=== PATIENT | female | born 1950 | race Caucasian/White ===

== ENCOUNTER 2016-12-15 12:43 | Outpatient (CLI) | payer MEDICARE ==
[2016-12-15 13:04] LABS: Basophils % (Auto) 1.1 % (0.0-1.8); Hematocrit 32.6 % (30.3-42.9); Hemoglobin 10.4 gm/dl (10.1-14.3); Mean Corpuscular HGB Conc 32 % (30-34); Mean Corpuscular Hemoglobin 29 pg (28-32); Mean Corpuscular Volume 90 fl (79-97); Platelet Count 247 K/mm3 (140-440); Red Blood Count 3.65 M/mm3 (3.65-5.03); Red Cell Distribution Width 14.9 % (13.2-15.2); White Blood Count 9.1 K/mm3 (4.5-11.0)
[2016-12-15 13:30] LABS: Albumin 3.9 g/dL (3.9-5); BUN/Creatinine Ratio 9.87; Bilirubin,Total 0.5 mg/dL (0.1-1.2); Calcium 9.2 mg/dL (8.4-10.2); Chloride 107.4 mmol/L (98-107); Phosphorous 4.8 mg/dL (2.5-4.5); Potassium 5.7 mmol/L (3.6-5.0); Total Protein 7.9 g/dL (6.3-8.2)
== END 2016-12-15 12:44 | disposition home or self-care (01) ==
LOC: LAB 12:43
PROVIDERS: ATTEND Internal Medicine Nephrology
DX: I13.2 Hypertensive heart and chronic kidney disease with heart failure and with stage 5 chronic kidney disease, or end stage renal disease (principal); N18.6 End stage renal disease; I50.33 Acute on chronic diastolic (congestive) heart failure; J44.9 Chronic obstructive pulmonary disease, unspecified; J45.909 Unspecified asthma, uncomplicated; Z87.891 Personal history of nicotine dependence; Z79.899 Other long term (current) drug therapy
CPT/HCPCS: 36415; 80053; 83970; 84100; 85025

== ENCOUNTER 2016-12-17 11:12 | Emergency (ER) | payer MEDICARE ==
[2016-12-17 12:19] LABS: Anion Gap 20 mmol/L; BUN/Creatinine Ratio 8.53; Blood Urea Nitrogen 64 mg/dL (7-17); Calcium 8.9 mg/dL (8.4-10.2); Carbon Dioxide 19 mmol/L (22-30); Chloride 104.9 mmol/L (98-107); Glucose 108 mg/dL (65-100); Sodium 139 mmol/L (137-145)
[2016-12-17 12:27] LABS: Eosinophils % (Auto) 3.6 % (0.0-4.3); Hematocrit 31.6 % (30.3-42.9); Hemoglobin 10.1 gm/dl (10.1-14.3); Mean Corpuscular HGB Conc 32 % (30-34); Mean Corpuscular Hemoglobin 29 pg (28-32); Mean Corpuscular Volume 90 fl (79-97); Platelet Count 235 K/mm3 (140-440); Red Blood Count 3.52 M/mm3 (3.65-5.03); Red Cell Distribution Width 14.4 % (13.2-15.2); White Blood Count 7.4 K/mm3 (4.5-11.0)
--- NOTE | 2016-12-17 12:52 | XRay Report ---
CHEST XRAY, 2 VIEWS: History: Shortness of breath. Findings: There is mild diffuse interstitial coarsening. The lungs are hyperexpanded but clear. No infiltrate, pleural fluid or pneumothorax is detected. The cardiac silhouette and pulmonary vasculature are within normal limits for technique. The bony thorax is unremarkable. Right IJ venous catheter terminates at the cavoatrial junction. IMPRESSION: Changes consistent with COPD. No acute cardiopulmonary process.
--- NOTE | 2016-12-17 17:06 | Emergency Department Report ---
ED Shortness of Breath HPI - General Chief Complaint: Dyspnea/Respdistress Stated Complaint: DIALYSIS Time Seen by Provider: 12/17/16 14:47 Source: patient, family Mode of arrival: Ambulatory Limitations: No Limitations - History of Present Illness Initial Comments: 66 year old female past medical history end-stage renal disease on dialysis, hypertension, CHF, COPD, diabetes, and brain aneurysm presents to the hospital complaining of needing dialysis. Patient has not had dialysis for 15 days. She complains of shortness of breath with exertion but she also has COPD and had intermittent wheezing. She denies chest pain, calf tenderness, or leg asymmetry. Patient has not gone to dialysis for 15 days because she does not like the dialysis center and thinks they are not caring for her in the proper way. She continues to make urine and has only been on dialysis since this June. Just the right chest wall vascular access without any AV fistula or graft. Patient is trying to get transferred to a new dialysis center. Brewing Director: Dr. Nguyen - Related Data Home Medications Medication Instructions Recorded Confirmed Last Taken Doxazosin [Cardura] 1 mg PO BID 12/17/16 12/17/16 12/16/16 Famotidine [Pepcid] 20 mg PO QDAY 12/17/16 12/17/16 12/16/16 Fenofibrate [Lofibra] 160 mg PO QDAC 12/17/16 12/17/16 12/16/16 Ferrous Sulfate [Feosol 325 MG tab] 325 mg PO TID 12/17/16 12/17/16 12/16/16 Folic Acid [Folvite] 1 mg PO QDAY 12/17/16 12/17/16 12/16/16 Furosemide [Lasix TAB] 40 mg PO QDAY 12/17/16 12/17/16 12/16/16 HYDROcodone/APAP 7.5-325 [[place] 1 tab PO TID 12/17/16 12/17/16 12/16/16 7.5-325 mg TAB] Insulin Glargine [Lantus VIAL] 20 units SC BID 12/17/16 12/17/16 Unknown Losartan [Cozaar] 25 mg PO QDAY 12/17/16 12/17/16 12/16/16 PARoxetine [Paxil] 20 mg PO QDAY 12/17/16 12/17/16 12/16/16 Spironolactone [Aldactone] 25 mg PO QDAY 12/17/16 12/17/16 12/16/16 Triamcinolone 0.1% [Kenalog 0.1% 1 applicatio TRANSDERMA BID 12/17/16 12/17/16 12/16/16 CREAM] hydrALAZINE [Apresoline TAB] 25 mg PO TID 12/17/16 12/17/16 12/16/16 levETIRAcetam [Keppra TAB] 500 mg PO BID 12/17/16 12/17/16 12/16/16 Previous Rx's Medication Instructions Recorded Last Taken Type Amiodarone HCl [Pacerone 400 MG 200 mg PO QDAY #30 tablet 03/11/15 12/16/16 Rx TAB] amLODIPine [Norvasc] 5 mg PO DAILY #30 tablet 03/11/15 12/16/16 Rx Allergies Allergy/AdvReac Type Severity Reaction Status Date / Time Penicillins Allergy Hives Verified 05/04/14 13:36 lactose AdvReac Diarrhea Verified 05/04/14 13:36 ED Review of Systems ROS: Stated complaint: DIALYSIS Other details as noted in HPI Comment: All other systems reviewed and negative Other: Constitutional: No fevers chills Eyes: No eye pain visual changes ENT: No ear pain or throat pain Neck: Denies pain Respiratory: Denies cough wheezing Cardiovascular: Denies chest pain, palpitations, syncope GI: Denies abdominal pain, nausea, vomiting, diarrhea : Denies dysuria Musculoskeletal: Denies back pain Skin: Denies rash, lesions, erythema Neurologic: Denies headache, numbness, weakness Psychiatric: Denies suicidal ideation, hallucinations ED Past Medical Hx - Past Medical History Previous Medical History?: Yes Hx Hypertension: Yes Hx Congestive Heart Failure: Yes Hx Diabetes: Yes Hx Arthritis: Yes Hx Asthma: Yes Hx COPD: Yes Additional medical history: brain aneurysm x2, DIALYSIS T,TH,SAT - Surgical History Past Surgical History?: Yes Hx Pacemaker: No Hx Internal Defibrillator: No Additional Surgical History: aneurysm removal x2, trach placement - Social History Smoking Status: Never Smoker Substance Use Type: None - Medications Home Medications: Home Medications Medication Instructions Recorded Confirmed Last Taken Type Amiodarone HCl [Pacerone 400 MG 200 mg PO QDAY #30 tablet 12/12/17/16 Rx TAB] amLODIPine [Norvasc] 5 mg PO DAILY #30 tablet 03/11/15 12/17/16 12/16/16 Rx Doxazosin [Cardura] 1 mg PO BID 12/17/16 12/17/16 12/16/16 History Famotidine [Pepcid] 20 mg PO QDAY 12/17/16 12/17/16 12/16/16 History Fenofibrate [Lofibra] 160 mg PO QDAC 12/17/16 12/17/16 12/16/16 History Ferrous Sulfate [Feosol 325 MG tab] 325 mg PO TID 12/17/16 12/17/16 12/16/16 History Folic Acid [Folvite] 1 mg PO QDAY 12/17/16 12/17/16 12/16/16 History Furosemide [Lasix TAB] 40 mg PO QDAY 12/17/16 12/17/16 12/16/16 History HYDROcodone/APAP 7.5-325 [[place] 1 tab PO TID 12/17/16 12/17/16 12/16/16 History 7.5-325 mg TAB] Insulin Glargine [Lantus VIAL] 20 units SC BID 12/17/16 12/17/16 Unknown History Losartan [Cozaar] 25 mg PO QDAY 12/17/16 12/17/16 12/16/16 History PARoxetine [Paxil] 20 mg PO QDAY 12/17/16 12/17/16 12/16/16 History Spironolactone [Aldactone] 25 mg PO QDAY 12/17/16 12/17/16 12/16/16 History Triamcinolone 0.1% [Kenalog 0.1% 1 applicatio TRANSDERMA BID 12/17/16 12/17/16 12/16/16 History CREAM] hydrALAZINE [Apresoline TAB] 25 mg PO TID 12/17/16 12/17/16 12/16/16 History levETIRAcetam [Keppra TAB] 500 mg PO BID 12/17/16 12/17/16 12/16/16 History ED Physical Exam - General Limitations: No Limitations - Other Other exam information: General: No limitations, patient is alert in no acute distress Head exam: Atraumatic, normocephalic Eyes exam: Normal appearance ENT: Moist mucous membrane, normal oropharynx Neck exam: Normal inspection, full range of motion, no meningismus nontender Respiratory exam: Clear to auscultation bilateral, no wheezes, rales, crackles Cardiovascular: Normal rate and rhythm, normal heart sounds Abdomen: Soft, nondistended, and nontender, with normal bowel sounds, no rebound, or guarding Extremity: Full range of motion normal inspection no deformity, tenderness or edema Back: Normal Inspection, full range of motion, no tenderness Neurologic: Alert, oriented x3, cranial nerves intact, no motor or sensory deficit Psychiatric: normal affect, normal mood Skin: Warm, dry, intact ED Course Vital Signs 12/17/16 12/17/16 12/17/16 11:38 13:18 13:31 Temperature 98 F Pulse Rate 74 Respiratory 18 18 Rate Blood Pressure 181/72 176/101 O2 Sat by Pulse 98 98 99 Oximetry 12/17/16 12/17/16 12/17/16 13:45 14:00 14:15 Temperature Pulse Rate Respiratory Rate Blood Pressure 176/101 169/73 169/73 O2 Sat by Pulse 98 98 98 Oximetry 12/17/16 12/17/16 12/17/16 14:31 14:45 15:00 Temperature Pulse Rate Respiratory Rate Blood Pressure 169/73 169/73 181/87 O2 Sat by Pulse 98 98 95 Oximetry 12/17/16 12/17/16 12/17/16 15:15 15:31 15:45 Temperature Pulse Rate Respiratory Rate Blood Pressure 181/87 181/87 181/87 O2 Sat by Pulse 99 99 99 Oximetry 12/17/16 12/17/16 12/17/16 16:00 16:15 16:31 Temperature Pulse Rate Respiratory Rate Blood Pressure 164/62 164/62 161/122 O2 Sat by Pulse 97 99 97 Oximetry 12/17/16 12/17/16 16:45 17:07 Temperature Pulse Rate Respiratory Rate Blood Pressure 164/62 164/62 O2 Sat by Pulse 97 96 Oximetry - Reevaluation(s) Reevaluation #1: 12/17/16 17:00 Patient stable in ED without distress or discomfort - Consultations Consultation #2: 12/17/16 16:0 Case discussed multiple times with Dr Nguyen her Brewing Director. She is aware of her issues with the [facility] but states she does not have an alternative dialysis center at this time. Apparently diagnosis center has been reaching out to patient for dialysis today. Patient does not meet admission criteria for dialysis and the patient can receive dialysis as outpatient within next 2 days. Unable to verify if availability at the center tomorrow given the time day however, patient may call tomorrow and they will reach out to her as well ED Medical Decision Making - Lab Data Result diagrams: 12/17/16 11:46 12/17/16 11:46 Lab Results 12/17/16 12/17/16 Range/Units 11:46 11:46 WBC 7.4 (4.5-11.0) K/mm3 RBC 3.52 L (3.65-5.03) M/mm3 Hgb 10.1 (10.1-14.3) gm/dl Hct 31.6 (30.3-42.9) % MCV 90 (79-97) fl MCH 29 (28-32) pg MCHC 32 (30-34) % RDW 14.4 (13.2-15.2) % Plt Count 235 (140-440) K/mm3 Lymph % (Auto) 19.3 (13.4-35.0) % Adams % (Auto) 8.0 H (0.0-7.3) % Eos % (Auto) 3.6 (0.0-4.3) % Baso % (Auto) 1.0 (0.0-1.8) % Lymph # 1.4 (1.2-5.4) K/mm3 Adams # 0.6 (0.0-0.8) K/mm3 Eos # 0.3 (0.0-0.4) K/mm3 Baso # 0.1 (0.0-0.1) K/mm3 Seg Neutrophils % 68.1 (40.0-70.0) % Seg Neutrophils # 5.0 (1.8-7.7) K/mm3 Sodium 139 (137-145) mmol/L Potassium 5.0 (3.6-5.0) mmol/L Chloride 104.9 (98-107) mmol/L Carbon Dioxide 19 L (22-30) mmol/L Anion Gap 20 mmol/L BUN 64 H (7-17) mg/dL Creatinine 7.5 H (0.7-1.2) mg/dL Estimated GFR 5 ml/min BUN/Creatinine Ratio 8.53 % Glucose 108 H (65-100) mg/dL Calcium 8.9 (8.4-10.2) mg/dL Troponin T < 0.010 (0.00-0.029) ng/mL - EKG Data -: EKG Interpreted by Me (sinus rate 69 no sT elevation NE no T inversions) - EKG Data When compared to previous EKG there are: no significant change (2014) - Radiology Data Radiology results: report reviewed (chest x-ray: COPD) - Medical Decision Making Patient has no findings of CHF, hyperkalemia, or uremia. Case discussed with her seasonal retail merchandiser. Patient does not meet criteria for inpatient admission for emergent dialysis. She still has urinary output. Patient to receive dialysis as outpatient and to call center tomorrow. Dr. Nguyen notified - Differential Diagnosis CHF, COPD, volume overload, hyperkalemia, uremia Critical Care Time: No Critical care attestation.: If time is entered above; I have spent that time in minutes in the direct care of this critically ill patient, excluding procedure time. ED Disposition Clinical Impression: Chronic obstructive pulmonary disease (COPD), ESRD (end stage renal disease) on dialysis, Non-compliance, HTN (hypertension) Disposition: - TO HOME OR SELFCARE Is pt being admited?: No Condition: Stable Instructions: Chronic Kidney Disease (ED), Hypertension (ED) Additional Instructions: It is very important that you continue to go to your dialysis center until a new one can be established. Please call your dialysis center tomorrow to arrange for dialysis. Referrals: MAU BRADLEY MD [Primary Care Provider] - 3-5 Days MARGIE NGUYEN MD [Staff Physician] - 3-5 Days Time of Disposition: 17:09
[2016-12-17 17:11] VITALS: BP 164/62
== END 2016-12-17 17:20 | disposition home or self-care (01) ==
LOC: ED 11:12
DX: J44.9 Chronic obstructive pulmonary disease, unspecified (principal); E11.22 Type 2 diabetes mellitus with diabetic chronic kidney disease; I12.0 Hypertensive chronic kidney disease with stage 5 chronic kidney disease or end stage renal disease; N18.6 End stage renal disease; Z99.2 Dependence on renal dialysis
CPT/HCPCS: 36415; 71020; 80048; 84484; 85025; 93005; 93010

== ENCOUNTER 2017-08-26 09:23 | Outpatient (CLI) | payer MEDICARE ==
[2017-08-26 09:56] LABS: Calcium 8.8 mg/dL (8.4-10.2)
== END 2017-08-26 09:24 | disposition home or self-care (01) ==
LOC: LAB 09:23
PROVIDERS: ATTEND Internal Medicine Nephrology
DX: I13.2 Hypertensive heart and chronic kidney disease with heart failure and with stage 5 chronic kidney disease, or end stage renal disease (principal); E11.22 Type 2 diabetes mellitus with diabetic chronic kidney disease; N18.6 End stage renal disease; I50.33 Acute on chronic diastolic (congestive) heart failure; I50.32 Chronic diastolic (congestive) heart failure; J44.1 Chronic obstructive pulmonary disease with (acute) exacerbation; D64.9 Anemia, unspecified; I48.91 Unspecified atrial fibrillation; Z71.6 Tobacco abuse counseling
CPT/HCPCS: 36415; 80048